=== PATIENT | male | born 2000 | race Caucasian/White ===

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

== ENCOUNTER 2020-03-25 23:41 | Emergency (ER) | payer OTHER ==
[2020-03-25 23:50] VITALS: RESP 14; TEMP 98
--- NOTE | 2020-03-26 00:16 | ED ---
Chest Pain HPI - General Chief Complaint: Chest Pain Stated Complaint: chest pain Time Seen by Provider: 03/25/20 23:43 Source: patient, EMS Mode of arrival: EMS Limitations: no limitations - History of Present Illness Initial Comments: patient is a 19-year-old male presenting to the emergency Department via EMS with complaints of burning chest pain has been intermittent throughout today. Patient states he just left [facility] for same complaint. Patient states he did receive lab work and chest x-ray which was all normal, he did receive a GI cocktail and morphine the pain and burning continued. Patient states when he got home the burning increased and he started crying and his father called 911 again. Patient states currently his pain is minimal, 2/10, substernal, no radiation. He describes it as an intense burning sensation. Pain seems to subside when he lays down. He denies any shortness of breath, nausea or vomiting. He denies history of heart disease, blood clots. Denies family history of heart disease or blood clots. He denies any recent fever, chills. He has no further complaints. - Related Data Previous Rx's Medication Instructions Recorded Cyclobenzaprine [Flexeril] 1 - 2 tab PO TID #20 tablet 05/11/18 Ibuprofen [Motrin] 600 mg PO Q6HR PRN #40 day 05/11/18 Omeprazole 40 mg PO DAILY 30 Days #30 03/26/20 capsule. Allergies Allergy/AdvReac Type Severity Reaction Status Date / Time No Known Allergies Allergy Verified 03/25/20 23:51 Review of Systems ROS Statement: Those systems with pertinent positive or pertinent negative responses have been documented in the HPI. ROS Other: All systems not noted in ROS Statement are negative. EKG Findings - EKG Comments: EKG Findings:: sinus rhythm with marked sinus arrhythmia, no signs of acute ischemia, Q-wave present in lead 2 and 3. Ventricular rate 68, MT interval 162, QTC 406. Past Medical History Past Medical History: No Reported History History of Any Multi-Drug Resistant Organisms: None Reported Past Surgical History: Appendectomy, Hernia Repair Past Psychological History: No Psychological Hx Reported Smoking Status: Current every day smoker Past Alcohol Use History: Occasional Past Drug Use History: Marijuana General Exam - General Exam Comments Initial Comments: GENERAL: Patient is well-developed and well-nourished. Patient is nontoxic and in no acute distress. HEAD: Atraumatic, normocephalic. EYES: Pupils equal round and reactive to light, extraocular movements intact, sclera anicteric, conjunctiva are normal. Eyelids were unremarkable. ENT: TMs normal, nares patent, oropharynx clear without exudates. Moist mucous membranes. NECK: Normal range of motion, supple without lymphadenopathy or JVD. LUNGS: Unlabored respirations. Breath sounds clear to auscultation bilaterally and equal. No wheezes rales or rhonchi. HEART: Regular rate and rhythm without murmurs, rubs or gallops. no pain with palpation of the anterior chest wall. ABDOMEN: Soft, nontender, normoactive bowel sounds. No guarding, no rebound. No masses appreciated. : Deferred MUSCULOSKELETAL: Normal extremities with adequate strength and normal range of motion, no pitting or edema. No clubbing or cyanosis. NEUROLOGICAL: Patient is alert and oriented x 3. Motor and sensory are also intact. Cranial nerves II through XII grossly intact. Symmetrical smile. Normal speech, normal gait. PSYCH: Normal mood, normal affect. SKIN: Warm, Dry, normal turgor, no rashes or lesions noted. Limitations: no limitations Course Vital Signs 03/25/20 23:43 Temperature 98.0 F Pulse Rate 56 L Respiratory 14 Rate Blood Pressure 105/60 O2 Sat by Pulse 98 Oximetry Chest Pain [facility] patient is a 19-year-old male here for burning intermittent chest discomfort throughout the day. He didn't leave AMA from [facility] prior to his arrival today for similar complaint. He states his lab work and x-rays there showed no acute process. He went home and symptoms worsen so he called 911 again. His EKG shows no acute process at this time. Lab work including troponin and d-dimer were all normal. Patient's pain has been minimal as he's been here, 08/06. I discussed the patient's symptoms are most likely related to esophagitis, GERD related. he does admit to occasionally drinking alcohol, daily heavy smoker. We did discuss smoking sensation. We will give him Protonix, GI cocktail. I will also send him home with a prescription for omeprazole. I discussed with him to take this daily and to follow up with his PCP. Patient is in agreement with this plan of care. Patient's father is also here and agrees. He is stable for discharge. Return parameters were discussed with the patient he verbalizes understanding. Case discussed Dr. Jaeger. Disposition Clinical Impression: Atypical chest pain, Esophagitis Disposition: HOME SELF-CARE Condition: Stable Instructions (If sedation given, give patient instructions): Esophagitis (ED) Additional Instructions: Please return to the Emergency Department if symptoms worsen or any other concerns. Take medication as prescribed. Follow up with PCP. Stop smoking. Prescriptions: Omeprazole 40 mg PO DAILY 30 Days #30 capsule.dr Is patient prescribed a controlled substance at d/c from ED?: No Referrals: None,Stated [Primary Care Provider] - 1-2 days Abdi Hickey MD [REFERRING] - 1-2 days
[2020-03-26 00:32] LABS: Basophils # (A) 0.1 k/uL (0-0.2); Basophils % (A) 1 %; Eosinophils # (A) 0.2 k/uL (0-0.7); Eosinophils % (A) 1 %; HCT 42.1 % (39.0-53.0); HGB 13.9 gm/dL (13.0-17.5); Lymphocytes # (A) 1.5 k/uL (1.0-4.8); Lymphocytes % (A) 13 %; MCH 29.3 pg (25.0-35.0); MCV 88.7 fL (80.0-100.0); Mean Platelet Volume 6.7; Monocytes # (A) 0.6 k/uL (0-1.0); Monocytes % (A) 5 %; Neutrophils # (A) 9.6 k/uL (1.3-7.7); Neutrophils % (A) 80 %; Platelet Count 236 k/uL (150-450); RBC 4.75 m/uL (4.30-5.90); RDW 11.7 % (11.5-15.5); WBC 12.1 k/uL (4.0-11.0)
--- NOTE | 2020-03-26 00:34 | XR ---
EXAMINATION TYPE: XR chest 2V DATE OF EXAM: 03/26/2020 COMPARISON: 12/24/2017 HISTORY: Chest pain TECHNIQUE: FINDINGS: Heart and mediastinum are normal. Lungs are clear. Diaphragm is normal. Bony thorax appears normal. IMPRESSION: Normal chest. No change.
[2020-03-26 00:39] LABS: ALT 18 U/L (4-49); AST 26 U/L (17-59); African American GFR (CKD) >90 (>60 ml/min/1.73 sqM); Albumin 4.4 g/dL (3.5-5.0); Alkaline Phosphatase 59 U/L (38-126); Anion Gap 7 mmol/L; Blood Urea Nitrogen 15 mg/dL (9-20); Calcium 9.6 mg/dL (8.4-10.2); Carbon Dioxide 28 mmol/L (22-30); Chloride 103 mmol/L (98-107); Glucose 111 mg/dL (74-99); Non-African American GFR(CKD) >90 (>60 ml/min/1.73 sqM); Potassium 3.9 mmol/L (3.5-5.1); Sodium 138 mmol/L (137-145); Total Bilirubin 0.4 mg/dL (0.2-1.3); Total Protein 7.1 g/dL (6.3-8.2)
[2020-03-26] MEDS ORDERED: PANTOPRAZOLE 40 MG/10 ML VIAL IVP STA (01:15)
[2020-03-26] MEDS ORDERED: MAG HYDROX/AL HYDROX/SIMETH 30 ML, HYOSCYAMINE ELIXIR 10 ML, LIDOCAINE VISCOUS 2% 10 ML PO STA ×3 (01:15)
[2020-03-26 01:43] VITALS: BP 118/65; PULSE 71
== END 2020-03-26 01:43 | disposition home or self-care (01) ==
LOC: EC 23:41
DX: K20.9 Esophagitis, unspecified (principal); R07.89 Other chest pain; F17.200 Nicotine dependence, unspecified, uncomplicated
CPT/HCPCS: 99285 ×2; 96374 ×3; 96375; 99284; 36415; 93005; 85379; 80053; 83735; 84484; 85025; 71046; 71260; 74177; J1630; J1885; C9113; Q9967

== ENCOUNTER 2020-03-26 04:05 | Emergency (ER) | payer OTHER ==
[2020-03-26 04:10] VITALS: BP 108/69; PULSE 72; RESP 18; TEMP 97.8
[2020-03-26] MEDS ORDERED: KETOROLAC 15 MG/ML 1 ML VIAL IVP STA (04:25)
[2020-03-26] MEDS ORDERED: HALOPERIDOL LACTATE 5 MG/ML 1 ML VIAL IVP STA (04:25)
[2020-03-26 04:44] LABS: Basophils # (A) 0.1 k/uL (0-0.2); Basophils % (A) 0 %; Eosinophils # (A) 0.1 k/uL (0-0.7); Eosinophils % (A) 1 %; HCT 43.3 % (39.0-53.0); HGB 14.4 gm/dL (13.0-17.5); Lymphocytes # (A) 2.4 k/uL (1.0-4.8); Lymphocytes % (A) 20 %; MCH 29.4 pg (25.0-35.0); MCHC 33.2 g/dL (31.0-37.0); MCV 88.5 fL (80.0-100.0); Mean Platelet Volume 6.6; Monocytes # (A) 0.7 k/uL (0-1.0); Monocytes % (A) 6 %; Neutrophils # (A) 8.7 k/uL (1.3-7.7); Neutrophils % (A) 72 %; Platelet Count 244 k/uL (150-450); RDW 11.7 % (11.5-15.5); WBC 12.1 k/uL (4.0-11.0)
[2020-03-26] MEDS ORDERED: SODIUM CHLORIDE 0.9% 1,000 ML IV ONE (04:50)
[2020-03-26 04:53] LABS: ALT 18 U/L (4-49); AST 26 U/L (17-59); African American GFR (CKD) >90 (>60 ml/min/1.73 sqM); Albumin 4.5 g/dL (3.5-5.0); Alkaline Phosphatase 58 U/L (38-126); Anion Gap 9 mmol/L; Blood Urea Nitrogen 15 mg/dL (9-20); Calcium 9.8 mg/dL (8.4-10.2); Carbon Dioxide 26 mmol/L (22-30); Chloride 104 mmol/L (98-107); Glucose 105 mg/dL (74-99); Non-African American GFR(CKD) >90 (>60 ml/min/1.73 sqM); Potassium 4.3 mmol/L (3.5-5.1); Sodium 139 mmol/L (137-145); Total Bilirubin 0.4 mg/dL (0.2-1.3); Total Protein 7.2 g/dL (6.3-8.2)
--- NOTE | 2020-03-26 04:54 | ED ---
General Adult HPI - General Chief complaint: Abdominal Pain Stated complaint: chest pain Time Seen by Provider: 03/26/20 04:08 Source: patient Mode of arrival: ambulatory Limitations: no limitations - History of Present Illness Initial comments: Luciano is a 19-year-old male who returns to the emergency department this morning for a third evaluation within 24 hours. Patient was seen and evaluated for burning retrosternal chest pain twice yesterday once at [facility] once here. Both workups were negative, patient's symptoms resolved while in the emergency department he was discharged home with a diagnosis of presumptive esophagitis. Patient reports he went home and was able to sleep but woke up with significant worsening pain. On evaluation patient is writhing around unable to localize his pain when asked to point to where his pain as he rubs from the nipple line to the right lower quadrant. Patient is not cooperative with examination pushing me away. - Related Data Previous Rx's Medication Instructions Recorded Cyclobenzaprine [Flexeril] 1 - 2 tab PO TID #20 tablet 05/11/18 Ibuprofen [Motrin] 600 mg PO Q6HR PRN #40 day 05/11/18 Omeprazole 40 mg PO DAILY 30 Days #30 03/26/20 capsule. Allergies Allergy/AdvReac Type Severity Reaction Status Date / Time No Known Allergies Allergy Verified 03/26/20 04:10 Review of Systems ROS Statement: Those systems with pertinent positive or pertinent negative responses have been documented in the HPI. ROS Other: All systems not noted in ROS Statement are negative. Past Medical History Past Medical History: No Reported History History of Any Multi-Drug Resistant Organisms: None Reported Past Surgical History: Appendectomy, Hernia Repair Past Psychological History: No Psychological Hx Reported Smoking Status: Current every day smoker Past Alcohol Use History: Occasional Past Drug Use History: Marijuana General Exam - General Exam Comments Initial Comments: Physical Exam GENERAL: Patient is well-developed and well-nourished. writing in pain HENT: Normocephalic, Atraumatic. EYES: PERRL, EOMI PULMONARY: Unlabored respirations. No audible rales rhonchi or wheezing was noted. CARDIOVASCULAR: There is a regular rate and rhythm without any murmurs gallops or rubs. ABDOMEN: Voluntary guarding in all quadrants, pushing my hand away during exam Scar in RLQ consistent with previous open appendectomy SKIN: Skin is clear with no lesions or rashes and otherwise unremarkable. : Deferred NEUROLOGIC: Patient is alert and oriented x3. Moving all extremities spontaneously MUSCULOSKELETAL: Normal extremities with adequate strength and full range of motion. No lower extremity swelling or edema. No calf tenderness. PSYCHIATRIC: Agitated not cooperative Limitations: no limitations Course Vital Signs 03/26/20 04:08 Temperature 97.8 F Pulse Rate 72 Respiratory 18 Rate Blood Pressure 108/69 O2 Sat by Pulse 100 Oximetry Medical Decision Making - Medical Decision Making Patient was seen and evaluated upon arrival patient is in hysterics clutching his upper abdomen and right side of his chest Given the patient's recurrence of symptoms I do have concern that he is experiencing a cyclic vomiting type discomfort though he is not vomiting Labs and fluids were ordered Patient be treated with Toradol and Haldol Given that this is the patient's third visit with unknown etiology of his discomfort computed tomography scan was obtained Computed tomography scan were both unremarkable Patient was given IV fluids. Repeatedly refused to provide a urine sample She has been asymptomatic and states that he feels comfortable going home at this time I did encourage the patient to follow with GI for reevaluation - Lab Data Result diagrams: 03/26/20 04:31 03/26/20 04:31 Lab Results 03/26/20 03/26/20 Range/Units 04:31 04:31 WBC 12.1 H (4.0-11.0) k/uL RBC 4.90 (4.30-5.90) m/uL Hgb 14.4 (13.0-17.5) gm/dL Hct 43.3 (39.0-53.0) % MCV 88.5 (80.0-100.0) fL MCH 29.4 (25.0-35.0) pg MCHC 33.2 (31.0-37.0) g/dL RDW 11.7 (11.5-15.5) % Plt Count 244 (150-450) k/uL Neutrophils % 72 % Lymphocytes % 20 % Monocytes % 6 % Eosinophils % 1 % Basophils % 0 % Neutrophils # 8.7 H (1.3-7.7) k/uL Lymphocytes # 2.4 (1.0-4.8) k/uL Monocytes # 0.7 (0-1.0) k/uL Eosinophils # 0.1 (0-0.7) k/uL Basophils # 0.1 (0-0.2) k/uL Sodium 139 (137-145) mmol/L Potassium 4.3 (3.5-5.1) mmol/L Chloride 104 (98-107) mmol/L Carbon Dioxide 26 (22-30) mmol/L Anion Gap 9 mmol/L BUN 15 (9-20) mg/dL Creatinine 1.03 (0.66-1.25) mg/dL Est GFR (CKD-EPI)AfAm >90 (>60 ml/min/1.73 sqM) Est GFR (CKD-EPI)NonAf >90 (>60 ml/min/1.73 sqM) Glucose 105 H (74-99) mg/dL Calcium 9.8 (8.4-10.2) mg/dL Total Bilirubin 0.4 (0.2-1.3) mg/dL AST 26 (17-59) U/L ALT 18 (4-49) U/L Alkaline Phosphatase 58 (38-126) U/L Total Protein 7.2 (6.3-8.2) g/dL Albumin 4.5 (3.5-5.0) g/dL - EKG Data -: EKG Interpreted by De EKG Comments: EKG was obtained due to right-sided chest pain, EKG was obtained 4:18 AM, rate is 53 rhythm is sinus bradycardia normal axis, normal intervals, OR 164, QRS 90, QTC [address] elevations or depressions motion artifact is noted. Disposition Clinical Impression: Atypical chest pain Disposition: HOME SELF-CARE Condition: Stable Is patient prescribed a controlled substance at d/c from ED?: No Referrals: None,Stated [Primary Care Provider] - 1-2 days Maegan Diaz MD [STAFF PHYSICIAN] - 1-2 days
--- NOTE | 2020-03-26 05:06 | CT ---
EXAMINATION TYPE: CT ChestAbdPelvis w con DATE OF EXAM: 03/26/2020 COMPARISON: 12/24/2017 HISTORY: Chest Pain, Abd Pain CT DLP: 1742.30 mGycm Automated exposure control for dose reduction was used. CONTRAST: Performed with IV Contrast, patient injected with 100 mL of Isovue 300. Images were obtained from the thoracic inlet to the floor the pelvis with IV contrast. FINDINGS: The lungs are clear of infiltrate. There is no pleural effusion. There is no mediastinal adenopathy. There are no hilar masses. Thoracic aorta is intact. There is no aneurysm or dissection. Heart size is normal. There is no peric ardial effusion. Liver spleen pancreas stomach gallbladder appear normal. Bile ducts are not dilated. There is no adre nal mass. Kidneys show satisfactory contrast opacification. There is no hydronephrosis. There is no r etroperitoneal adenopathy Bladder distends smoothly. There is no inguinal hernia. There is no free fluid in the pelvis. There i s no evidence of a pelvic mass. Terminal ileum appears normal. Appendix is not definitely seen. There is no sign of thickened appendix. There is no mesenteric edema. There is no ascites or free air. There is no bowel obstruction. Lumbar vertebra and thoracic vertebra have normal spacing and alignment. Posterior elements are intac t. Bony pelvis is intact. The hip joints appear normal. Sternum is intact. The ribs appear intact. Sh oulder joints are intact. IMPRESSION: Negative CT scan of the abdomen and pelvis. Negative CT scan of the chest. There is clearing of the m inimal atelectasis at the lung bases compared to old exam. I do not see a cause for the patient's sym ptoms.
== END 2020-03-26 06:52 | disposition home or self-care (01) ==
LOC: EC 04:05
DX: R07.89 Other chest pain (principal); F17.200 Nicotine dependence, unspecified, uncomplicated; Z90.49 Acquired absence of other specified parts of digestive tract
CPT/HCPCS: 36415; 80053; 85025; 71260; 74177; 99284; 96374; 96375; J1630; J1885; Q9967

== ENCOUNTER 2022-02-06 17:32 | Emergency (ER) | payer OTHER ==
[2022-02-06 17:37] VITALS: BP 106/57; PULSE 74; RESP 16; TEMP 98.1
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
--- NOTE | 2022-02-06 18:12 | XR ---
EXAMINATION TYPE: XR hand complete RT DATE OF EXAM: 02/06/2022 5:56 PM INDICATION: Patient age:Male; 21 years old; Reason for study: Right hand pain, trauma; PHH. COMPARISON: None TECHNIQUE: Frontal, lateral and oblique views of the right hand were obtained. FINDINGS: Normal alignment of the visualized joints. Small well-corticated density is noted lateral t o the base of the fifth metacarpal, concerning for small chip fracture. No significant soft tissue sw elling of the hand. Osseous structures are otherwise normal in appearance. IMPRESSION: Small osseous density adjacent to the base of the fifth metatarsal, concerning for small chip fractur e versus accessory ossicle. Correlate with point tenderness.
== END 2022-02-06 18:33 | disposition home or self-care (01) ==
LOC: EC 17:32
DX: S60.221A Contusion of right hand, initial encounter (principal); S63.91XA Sprain of unspecified part of right wrist and hand, initial encounter; F17.200 Nicotine dependence, unspecified, uncomplicated; W22.8XXA Striking against or struck by other objects, initial encounter